=== PATIENT | female | born 2000 | race Caucasian/White ===

== ENCOUNTER 2020-04-15 13:33 | Outpatient (CLI) | payer OTHER, SELFPAY ==
[2020-04-15 15:23] LABS: Hepatitis B Surface Antigen Negative (Negative)
[2020-04-15 15:40] LABS: Hepatitis C Virus Antibody Negative (Negative)
[2020-04-16 08:49] LABS: Rapid Plasma Reagin Non-Reactive (NonReactive)
[2020-04-19 14:56] LABS: HSV 1 IgM Screen Negative (Negative); HSV 2 IgM Screen Negative (Negative)
== END 2020-04-15 13:34 | disposition home or self-care (01) ==
PROVIDERS: Visit Provider Obstetrics & Gynecology
DX: Z20.2 Contact with and (suspected) exposure to infections with a predominantly sexual mode of transmission (principal)
CPT/HCPCS: 36415; 86592; 86695; 86696; 86803; 87340